=== PATIENT | female | born 2000 | race Two or more races ===

== ENCOUNTER 2020-07-14 21:39 | Emergency (ER) | payer OTHER ==
[~2020-07-14] VITALS: Ht 157.5 cm; Wt 58.1 kg
[2020-07-14] MEDS ORDERED: PRENA1 TRUE CO1 EACH (21:58)
== END 2020-07-14 22:22 | disposition home or self-care (01) ==
LOC: EMR PED 21:39 → ER 21:56
DX: O26.893 Other specified pregnancy related conditions, third trimester (principal); M54.89 Other dorsalgia; Z3A.28 28 weeks gestation of pregnancy

== ENCOUNTER 2020-09-12 05:05 | Outpatient (CLI) | payer OTHER ==
[~2020-09-12 05:05] MED LIST: PRENA1 TRUE CO1 EACH
== END 2020-09-12 09:07 | disposition home or self-care (01) ==
LOC: OBS/DEL 05:05
PROVIDERS: ATTEND Obstetrics & Gynecology
DX: O47.1 False labor at or after 37 completed weeks of gestation (principal); Z3A.37 37 weeks gestation of pregnancy

== ENCOUNTER 2020-09-27 21:55 | Inpatient (IN) | payer OTHER ==
[~2020-09-27] VITALS: Ht 157.5 cm; Wt 63.5 kg
[2020-09-27] MEDS ORDERED: FOLIC ACID20 MG PO (22:58)
== END 2020-10-01 15:30 | disposition home or self-care (01) | DRG 788 ==
LOC: LDR 21:55 → OB/GYN 09-29 03:12
PROVIDERS: ADMIT Obstetrics & Gynecology; ATTEND Obstetrics & Gynecology
PROC: 10D00Z1 Extraction of Products of Conception, Low, Open Approach (ICD-10-PCS; principal; 2020-09-27)
PROC: 3E0P7VZ Introduction of Hormone into Female Reproductive, Via Natural or Artificial Opening (ICD-10-PCS; 2020-09-27)
PROC: 4A1HXFZ Monitoring of Products of Conception, Cardiac Rhythm, External Approach (ICD-10-PCS; 2020-09-27)
DX: O61.0 Failed medical induction of labor (principal); Z3A.39 39 weeks gestation of pregnancy; Z37.0 Single live birth

== ENCOUNTER 2024-03-10 09:23 | Outpatient (CLI) | payer OTHER ==
[~2024-03-10 09:23] MED LIST changes: +FOLIC ACID20 MG PO
== END 2024-03-10 09:26 | disposition home or self-care (01) ==
LOC: PRENATAL 09:23
PROVIDERS: ATTEND Obstetrics & Gynecology Maternal & Fetal Medicine
DX: O36.80X0 Pregnancy with inconclusive fetal viability, not applicable or unspecified (principal); Z36.82 Encounter for antenatal screening for nuchal translucency; Z14.8 Genetic carrier of other disease; O34.219 Maternal care for unspecified type scar from previous cesarean delivery; Z3A.14 14 weeks gestation of pregnancy

== ENCOUNTER 2024-04-17 10:50 | Outpatient (CLI) | payer OTHER | END 2024-04-17 10:51 | disposition home or self-care (01) | LOC: PRENATAL 10:50 | PROVIDERS: ATTEND Obstetrics & Gynecology Maternal & Fetal Medicine | DX: O35.3XX0 Maternal care for (suspected) damage to fetus from viral disease in mother, not applicable or unspecified (principal); O44.00 Complete placenta previa NOS or without hemorrhage, unspecified trimester; O34.219 Maternal care for unspecified type scar from previous cesarean delivery; Z3A.20 20 weeks gestation of pregnancy ==

== ENCOUNTER 2024-06-12 08:54 | Emergency (ER) | payer OTHER ==
[~2024-06-12] VITALS: Ht 157.5 cm; Wt 56.7 kg
[2024-06-12] MEDS ORDERED: LEVALBUTEROL HCL 1.25 MG/3 ML SOLUTION IH STA (09:58)
[2024-06-12] MEDS ORDERED: BUDESONIDE 0.5 MG/2 ML AMPUL.NEB IH STA (09:58)
[2024-06-12] MEDS ORDERED: METHYLPREDNISOLONE SOD SUCC 125 MG VIAL IV STA (09:59)
[2024-06-12] MEDS ORDERED: GUAIFEN/DEXTROMETHORPHAN/PE 10 ML BLIST.PACK PO STA (10:00)
[2024-06-12] MEDS ORDERED: LEVALBUTEROL HCL 1.25 MG/3 ML SOLUTION IH ONE (10:37)
[2024-06-12] MEDS ORDERED: BUDESONIDE 0.5 MG/2 ML AMPUL.NEB IH ONE (10:37)
[2024-06-12] MEDS ORDERED: METHYLPREDNISOLONE SOD SUCC 125 MG VIAL ONE (10:40)
[2024-06-12] MEDS ORDERED: GUAIFEN/DEXTROMETHORPHAN/PE 10 ML BLIST.PACK PO ONE (10:40)
== END 2024-06-12 11:38 | disposition home or self-care (01) ==
LOC: ER 08:56
DX: O26.892 Other specified pregnancy related conditions, second trimester (principal); Z3A.27 27 weeks gestation of pregnancy; J45.909 Unspecified asthma, uncomplicated; Z91.013 Allergy to seafood; Z88.8 Allergy status to other drugs, medicaments and biological substances; R05.8 Other specified cough; Z20.822 Contact with and (suspected) exposure to COVID-19

== ENCOUNTER 2024-07-10 10:45 | Outpatient (CLI) | payer OTHER | END 2024-07-10 10:46 | disposition home or self-care (01) | LOC: PRENATAL 10:45 | PROVIDERS: ATTEND Obstetrics & Gynecology Maternal & Fetal Medicine | DX: O26.849 Uterine size-date discrepancy, unspecified trimester (principal); O36.8199 Decreased fetal movements, unspecified trimester, other fetus; O34.219 Maternal care for unspecified type scar from previous cesarean delivery; O26.859 Spotting complicating pregnancy, unspecified trimester; Z3A.31 31 weeks gestation of pregnancy ==

== ENCOUNTER 2024-07-20 09:51 | Emergency (ER) | payer OTHER ==
[~2024-07-20] VITALS: Ht 157.5 cm; Wt 59.0 kg
[2024-07-20] MEDS ORDERED: METRONIDAZOLE500 MG PO (11:18)
[2024-07-20] MEDS ORDERED: PEPCID AC20 MG PO (11:18)
[2024-07-20] MEDS ORDERED: VAGISIL CREAM28 GM VAG (11:18)
== END 2024-07-20 11:54 | disposition home or self-care (01) ==
LOC: ER 09:52
DX: O23.593 Infection of other part of genital tract in pregnancy, third trimester (principal); Z3A.33 33 weeks gestation of pregnancy; B96.89 Other specified bacterial agents as the cause of diseases classified elsewhere

== ENCOUNTER 2024-07-27 10:21 | Outpatient (CLI) | payer OTHER ==
[~2024-07-27] VITALS: Ht 157.5 cm; Wt 59.0 kg
[2024-07-27 09:49] VITALS: BP 104/65
[~2024-07-27 10:21] MED LIST changes: -CEFUROXIME500 MG PO; -FEOSOL325 MG PO; -IBUPROFEN800 MG PO
[2024-07-27] MEDS ORDERED: CEFAZOLIN SODIUM 1,000 MG VIAL IV ONE (10:45)
[2024-07-27 11:11] LABS: HEMATOCRIT 26.8 % (36.0-45.00); MEAN CELL VOLUME 75.5 fL (80.00-100.00); MEAN CORPUSCULAR HEMOGLOBIN 25.3 pg (27.00-32.0); MEAN CORPUSCULAR HGB CONC 33.4 g/dl (32.0-36.0); PH,URINE 5.5 (5.0-8.0); PLATELET COUNT 187 K/uL (150-450); RED BLOOD COUNT 3.55 M/uL (4.00-6.00); RED CELL DISTRIBUTION WIDTH 15.1 % (11.5-14.5); URINE APPEARANCE Cloudy; URINE BILIRRUBIN Small (NEGATIVE); URINE BLOOD Trace; URINE COLOR Dark Yellow; URINE GLUCOSE Negative (NEGATIVE); URINE KETONE Trace (NEGATIVE); URINE LEUKOCYTE Moderate; URINE NITRATE Negative; URINE PROTEIN 30 (NEGATIVE)
[2024-07-27 11:18] LABS: URINE BACTERIA 7287.5 uL (0.0-1933); URINE CAST 1.76 uL (0.0-1.40); URINE RBC 55.3 uL (0.0-20.8); URINE WBC 875.7 uL (0.0-23.2)
[2024-07-27] MEDS ORDERED: CEFUROXIME500 MG PO (15:10)
[2024-07-27] MEDS ORDERED: FEOSOL325 MG PO (15:10)
[2024-07-27 15:15] VITALS: BP 112/72
[2024-07-27] MEDS ORDERED: CEFAZOLIN SODIUM 1,000 MG VIAL ONE (15:47)
[2024-07-27] MEDS ORDERED: CEFAZOLIN SODIUM 1,000 MG VIAL IV SCH ×2 (17:00→18:00)
[2024-07-27 17:13] VITALS: BP 112/71
== END 2024-07-27 17:13 | disposition home or self-care (01) ==
LOC: OBS/DEL 10:21
PROVIDERS: ATTEND Specialist
DX: O23.43 Unspecified infection of urinary tract in pregnancy, third trimester (principal); N39.0 Urinary tract infection, site not specified; O26.849 Uterine size-date discrepancy, unspecified trimester; O36.8199 Decreased fetal movements, unspecified trimester, other fetus; Z3A.33 33 weeks gestation of pregnancy

== ENCOUNTER → 2024-07-27 | Emergency (ER) | payer OTHER ==
[~2024-07-27] VITALS: Ht 157.5 cm; Wt 59.0 kg
[~2024-07-27] MED LIST changes: +CEFUROXIME500 MG PO; +FEOSOL325 MG PO; +IBUPROFEN800 MG PO; +METRONIDAZOLE500 MG PO; +PEPCID AC20 MG PO; +VAGISIL CREAM28 GM VAG
== END | disposition still patient (30) ==
LOC: ER 09:01
DX: O26.893 Other specified pregnancy related conditions, third trimester (principal)

== ENCOUNTER 2024-08-12 13:59 | Inpatient (IN) | payer OTHER ==
[~2024-08-12] VITALS: Ht 157.5 cm; Wt 62.6 kg
[~2024-08-12 13:59] MED LIST changes: +CEFUROXIME500 MG PO; +FEOSOL325 MG PO
[2024-08-21 05:43] VITALS: BP 122/77
[2024-08-21 07:26] LABS: URINE APPEARANCE Cloudy; URINE BILIRRUBIN Negative (NEGATIVE); URINE BLOOD NHT; URINE COLOR Yellow; URINE GLUCOSE Negative (NEGATIVE); URINE KETONE Negative (NEGATIVE); URINE LEUKOCYTE Moderate; URINE NITRATE Negative; URINE PROTEIN 30 (NEGATIVE)
[2024-08-21 07:29] LABS: URINE BACTERIA 307.2 uL (0.0-1933); URINE RBC 12.9 uL (0.0-20.8); URINE WBC 94.2 uL (0.0-23.2)
[2024-08-21 07:31] LABS: HEMATOCRIT 26.7 % (36.0-45.00); MEAN CELL VOLUME 72.5 fL (80.00-100.00); MEAN CORPUSCULAR HEMOGLOBIN 23.8 pg (27.00-32.0); MEAN CORPUSCULAR HGB CONC 32.9 g/dl (32.0-36.0); PLATELET COUNT 174 K/uL (150-450); RED BLOOD COUNT 3.69 M/uL (4.00-6.00); RED CELL DISTRIBUTION WIDTH 16.1 % (11.5-14.5)
[2024-08-21 07:32] LABS: HEMOGLOBIN 8.8 g/dL (12.0-15.00)
[2024-08-21 07:46] LABS: URINE CAST 0.14 uL (0.0-1.40)
[2024-08-21 07:47] LABS: INR 0.95; PARTIAL THROMBOPLASTIN TIME 27.6 SECONDS (22.0-34.0); PROTHROMBIN TIME 10.4 SECONDS (9.0-11.5)
[2024-08-21 08:23] LABS: ALBUMIN 2.9 gm/dL (3.4-5.0); BILIRUBIN TOTAL 0.27 mg/dL (0.3-1.2); CREATININE SERUM 0.36 mg/dL (0.55-1.02); GFR 221.45; GLOBULINA 3.5 G/DL (2.4-3.5); POTASSIUM 3.4 mEq/L (3.5-5.1); TOTAL PROTEIN 6.4 gm/dL (6.4-8.2)
[2024-08-21 09:07] LABS: RH POSITIVE
[2024-08-21] MEDS ORDERED: AMPICILLIN SODIUM 1,000 MG VIAL ONE (10:24)
[2024-08-21] MEDS ORDERED: ERYTHROMYCIN BASE OPHT 1GM EACH TUBE OP ONE (13:36)
[2024-08-21] MEDS ORDERED: OXYTOCIN 10 UNITS/ML VIAL ONE (13:36)
[2024-08-21] MEDS ORDERED: CHLORHEXIDINE GLUCONATE 120 ML BOTTLE TOP ONE (13:53)
[2024-08-21] MEDS ORDERED: MORPHINE SULFATE 4 MG/ML CARTRIDGE IV PRN (15:30)
[2024-08-21] MEDS ORDERED: RINGERS SOLUTION,LACTATED 1,000 ML IV SCH (15:30)
[2024-08-21] MEDS ORDERED: MORPHINE SULFATE 4 MG/ML VIAL IV ONE (16:30)
[2024-08-21 20:00] VITALS: BP 128/80
[2024-08-22] VITALS: BP 117/77
[2024-08-22 01:53] LABS: BASO % 0.3 % (0.1-1.2); EOS # 0.13 (0.04-0.54); EOS % 1.5 % (0.7-7.0); LYMPH # 1.02 (1.18-3.74); LYMPH % 11.8 % (19.3-53.1); MEAN CORPUSCULAR HEMOGLOBIN 23.6 pg (25.6-32.2); MONO # 0.66 (0.24-0.82); MONO % 7.6 % (4.7-12.5); NEUT # 6.75 (1.56-6.13); NEUT % 78.3 % (34.0-71.1); PLATELET COUNT 151 K/uL (163-369); RED BLOOD COUNT 3.35 M/uL (3.93-5.22); RED CELL DISTRIBUTION WIDTH 15.2 % (11.6-14.4)
[2024-08-22 01:59] LABS: HEMATOCRIT 24.3 % (34.1-44.9); HEMOGLOBIN 7.9 g/dL (11.2-15.7)
[2024-08-22 04:30] VITALS: BP 110/77
[2024-08-22 09:12] VITALS: BP 107/70
[2024-08-22] MEDS ORDERED: IBUprofen 800 MG TABLET PO SCH (13:39)
[2024-08-22 17:28] VITALS: BP 115/73
[2024-08-22 20:17] VITALS: BP 110/74
[2024-08-23] VITALS: BP 107/70
[2024-08-23 08:36] VITALS: BP 118/80
[2024-08-23 16:54] VITALS: BP 118/69
[2024-08-24] VITALS: BP 117/77
[2024-08-24] MEDS ORDERED: IBUPROFEN800 MG PO (07:57)
[2024-08-24 08:00] VITALS: BP 129/80
== END 2024-08-24 12:24 | disposition home or self-care (01) | DRG 788 ==
LOC: O/R 08-21 05:05 → OB/GYN 08-21 05:05 → LDR 08-21 09:30 → OB/GYN 08-21 16:28
PROVIDERS: ADMIT Specialist; ATTEND Specialist
PROC: 4A1HXCZ Monitoring of Products of Conception, Cardiac Rate, External Approach (ICD-10-PCS; 2024-08-21)
PROC: 10D00Z1 Extraction of Products of Conception, Low, Open Approach (ICD-10-PCS; principal; 2024-08-21 09:30)
DX: O34.211 Maternal care for low transverse scar from previous cesarean delivery (principal); O99.824 Streptococcus B carrier state complicating childbirth; Z3A.38 38 weeks gestation of pregnancy; Z37.0 Single live birth

== ENCOUNTER 2024-09-17 09:43 | Emergency (ER) | payer OTHER ==
[~2024-09-17] VITALS: Ht 157.5 cm; Wt 49.9 kg
[~2024-09-17 09:43] MED LIST changes: +IBUPROFEN800 MG PO
[2024-09-17 10:55] VITALS: BP 120/81; O2SAT 100
[2024-09-17] MEDS ORDERED: CEFTRIAXONE SODIUM 1,000 MG VIAL IV ONE (11:30)
[2024-09-17] MEDS ORDERED: CEFTRIAXONE SODIUM 1,000 MG VIAL ONE (11:32)
[2024-09-17 12:02] LABS: BASO % 0.5 % (0.1-1.2); EOS # 0.32 (0.04-0.54); EOS % 3.2 % (0.7-7.0); HEMATOCRIT 32.1 % (34.1-44.9); LYMPH # 1.47 (1.18-3.74); LYMPH % 14.8 % (19.3-53.1); MEAN CORPUSCULAR HEMOGLOBIN 22.7 pg (25.6-32.2); MONO # 0.69 (0.24-0.82); NEUT # 7.35 (1.56-6.13); NEUT % 74.2 % (34.0-71.1); PLATELET COUNT 260 K/uL (163-369); RED CELL DISTRIBUTION WIDTH 16.2 % (11.6-14.4)
[2024-09-17 13:13] LABS: PH,URINE 6.5 (5.0-8.0); URINE APPEARANCE Clear; URINE BILIRRUBIN Negative (NEGATIVE); URINE BLOOD Moderate; URINE COLOR Yellow; URINE GLUCOSE Negative (NEGATIVE); URINE KETONE Trace (NEGATIVE); URINE LEUKOCYTE Small; URINE NITRATE Negative; URINE PROTEIN Trace (NEGATIVE)
[2024-09-17 13:17] LABS: URINE BACTERIA 2336.5 uL (0.0-1933); URINE EPITHELIAL CELLS 42.2 uL (0.0-38.8); URINE RBC 101.7 uL (0.0-20.8); URINE WBC 83.5 uL (0.0-23.2)
[2024-09-17 13:19] LABS: URINE CAST 0.29 uL (0.0-1.40)
[2024-09-17 13:27] LABS: URINE CRYSTALS FEW /HPF
== END 2024-09-17 14:30 | disposition home or self-care (01) ==
LOC: ER 10:25
PROVIDERS: Emergency Medicine
DX: O34.211 Maternal care for low transverse scar from previous cesarean delivery (principal); Z91.013 Allergy to seafood; Z88.8 Allergy status to other drugs, medicaments and biological substances